=== PATIENT | male | born 1950 | race Two or more races ===

== ENCOUNTER 2020-10-02 08:04 | Outpatient (CLI) | payer OTHER | END 2020-10-02 08:13 | disposition home or self-care (01) | LOC: TOM 08:04 | PROVIDERS: ATTEND Internal Medicine Gastroenterology | DX: K57.30 Diverticulosis of large intestine without perforation or abscess without bleeding (principal); K44.9 Diaphragmatic hernia without obstruction or gangrene; K86.89 Other specified diseases of pancreas; R10.30 Lower abdominal pain, unspecified ==